=== PATIENT | male | born 1990 | race Caucasian/White ===

== ENCOUNTER 2019-02-16 00:38 | Emergency (ER) | payer OTHER ==
--- NOTE | 2019-02-16 02:35 | ED Physician Documentation ---
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 He did get some heat under his necklace that is around his neck as well. He has had 7 previous shocks in his line of work and states this is a minor shock with 115 V and he feels well at this time. Review of Systems Constitutional: denies: Fever Eyes: denies: Decreased vision, Photophobia Ears: denies: Ear pain Nose: denies: Congestion Throat: denies: Sore throat Cardiac: denies: Chest pain / pressure Respiratory: denies: Cough GI: denies: Vomiting PD PAST MEDICAL HISTORY - Past Medical History Past Medical History: No - Past Surgical History Past Surgical History: No - Present Medications Home Medications: Ambulatory Orders Medication Instructions Recorded Confirmed No Known Home Medications 02/16/19 02/16/19 - Allergies Allergies/Adverse Reactions: Allergies Allergy/AdvReac Type Severity Reaction Status Date / Time No Known Drug Allergies Allergy Verified 02/16/19 00:48 - Social History Does the pt smoke?: Yes Smoking Status: Current every day smoker Does the pt drink ETOH?: Yes Does the pt have substance abuse?: No - Immunizations Immunizations are current?: Yes PD ED PE NORMAL - Vitals Vital signs reviewed: Yes (hypertensive ) - General General: Alert and oriented X 3, No acute distress, Well developed/nourished - HEENT HEENT: Atraumatic, PERRL, EOMI - Neck Neck: Supple, no meningeal sign - Cardiac Cardiac: RRR, No murmur - Respiratory Respiratory: No respiratory distress, Clear bilaterally - Back Back: No CVA TTP, No spinal TTP - Derm Derm: Normal color, Warm and dry, No rash - Extremities Extremities: No deformity, No edema - Neuro Neuro: Alert and oriented X 3, executive chairman of the board 2-12 intact, No motor deficit, No sensory deficit, Normal speech Eye Opening: Spontaneous Motor: Obeys Commands Verbal: Oriented GCS Score: 15 - Psych Psych: Normal mood, Normal affect Results - Vitals Vitals: Vital Signs - 24 hr 02/16/19 02/16/19 02/16/19 00:43 00:54 02:41 Temperature 36.7 C 36.6 C Heart Rate 93 88 90 Respiratory 20 16 Rate Blood Pressure 179/84 H 144/62 H O2 Saturation 98 99 Oxygen O2 Source Room air - EKG (time done) 0040 Rate: Rate (enter#) (90) Rhythm: NSR Ischemia: Normal ST segments Compare to prior EKG: Old EKG unavailable Computer interpretation: Agree with computer PD MEDICAL DECISION MAKING - ED course Complexity details: reviewed results, re-evaluated patient, considered d ifferential, d/w patient ED course: 28-year-old male with an electrical injury from 115 V current appears uninjured. He has had injuries numerous times he feels safe to go home. He is monitored in the emergency department for over 1 hour without ectopy. Departure - Departure Disposition: 01 Home, Self Care Clinical Impression: Electrical shock of hand Qualifiers: Encounter type: initial encounter Qualified Code(s): T75.4XXA - Electrocution, initial encounter Condition: Stable Health Concerns: Electrical shock Plan of Treatment: avoid bare loaded wires Care Goals: never get shocked again Assessment: electrical shock Instructions: ED Burn Electrical Follow-Up: JAYCOB HOLMAN III, MD [Primary Care Provider] - Discharge Date/Time: 02/16/19 02:42
[2019-02-16 02:42] VITALS: BP 144/62
== END 2019-02-16 02:42 | disposition home or self-care (01) ==
LOC: ED 00:38
DX: T75.4XXA Electrocution, initial encounter (principal); F17.200 Nicotine dependence, unspecified, uncomplicated
CPT/HCPCS: 93005; 99282; 99283

== ENCOUNTER 2020-01-26 20:49 | Emergency (ER) | payer OTHER ==
--- NOTE | 2020-01-26 21:22 | ED Physician Documentation ---
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 He denies any alcohol use for the last 30 days he denies any recent travel outside the country he denies any headache, neck pain, sore throat, rash or any syncopal episodes.) Review of Systems Constitutional: reports: Fever, Chills, Myalgias Eyes: reports: Reviewed and negative Ears: reports: Reviewed and negative Nose: reports: Reviewed and negative Throat: reports: Reviewed and negative Cardiac: reports: Reviewed and negative Respiratory: reports: Reviewed and negative GI: reports: Nausea : reports: Reviewed and negative Skin: reports: Reviewed and negative Musculoskeletal: reports: Reviewed and negative Neurologic: reports: Reviewed and negative Psychiatric: reports: Reviewed and negative Endocrine: reports: Reviewed and negative Immunocompromised: reports: Reviewed and negative PD PAST MEDICAL HISTORY - Past Medical History Cardiovascular: None Respiratory: None Neuro: None Endocrine/Autoimmune: None GI: Pancreatitis : None HEENT: None Psych: None Musculoskeletal: None Derm: None - Past Surgical History Past Surgical History: No - Present Medications Home Medications: Ambulatory Orders Medication Instructions Recorded Confirmed No Known Home Medications 02/16/19 01/26/20 - Allergies Allergies/Adverse Reactions: Allergies Allergy/AdvReac Type Severity Reaction Status Date / Time No Known Drug Allergies Allergy Verified 01/26/20 20:54 - Social History Does the pt smoke?: Yes Smoking Status: Current every day smoker Does the pt drink ETOH?: Yes Does the pt have substance abuse?: No - Immunizations Immunizations are current?: Yes PD ED PE NORMAL - Vitals Vital signs reviewed: Yes - General General: Alert and oriented X 3, No acute distress, Well developed/nourished - HEENT HEENT: PERRL, Moist mucous membranes - Neck Neck: Supple, no meningeal sign, No adenopathy, Thyroid normal - Cardiac Cardiac: RRR, No murmur, Strong equal pulses - Respiratory Respiratory: No respiratory distress, Clear bilaterally - Abdomen Abdomen: Normal bowel sounds, Soft, Non tender, Non distended, No organomegaly, Other (No midline abdominal pulsatile mass there is mild tenderness in the epigastric region but no peritoneal signs) - Back Back: No CVA TTP, No spinal TTP - Derm Derm: Normal color, Warm and dry, No rash - Extremities Extremities: No deformity, No tenderness to palpate, Normal ROM s pain, No edema, No calf tenderness / cord - Neuro Neuro: Alert and oriented X 3, trip follower 2-12 intact, No motor deficit, No sensory deficit, Normal speech - Psych Psych: Normal mood, Normal affect Results - Vitals Vitals: Vital Signs - 24 hr 01/26/20 01/26/20 01/27/20 20:51 22:51 00:12 Temperature 37.7 C H Heart Rate 122 H 91 82 Respiratory 18 16 16 Rate Blood Pressure 150/87 H 153/88 H 155/79 H O2 Saturation 98 97 98 Oxygen O2 Source Room air - Labs Labs: Laboratory Tests 01/26/20 01/26/20 01/26/20 21:50 21:50 21:50 WBC 3.1 L RBC 5.02 Hgb 14.5 Hct 43.1 MCV 85.9 MCH 28.9 MCHC 33.6 RDW 12.3 Plt Count 150 MPV 12.3 H Neut # (Auto) 1.7 Lymph # (Auto) 0.9 L [place] # (Auto) 0.4 Eos # (Auto) 0.0 Baso # (Auto) 0.1 Absolute Nucleated RBC 0.00 Nucleated RBC % 0.0 PT 13.1 H INR 1.2 APTT 30.8 Sodium 133 L Potassium 3.9 Chloride 100 L Carbon Dioxide 25 Anion Gap 8.0 BUN 15 Creatinine 1.1 Estimated GFR (MDRD) 80 L Glucose 113 H Calcium 8.6 Total Bilirubin AST ALT Alkaline Phosphatase Total Creatine Kinase 70 Total Protein Albumin Globulin Albumin/Globulin Ratio Lipase Urine Color Urine Clarity Urine pH Ur Specific [place] Urine Protein Urine Glucose (UA) Urine Ketones Urine Occult Blood Urine Nitrite Urine Bilirubin Urine Urobilinogen Ur Leukocyte Esterase Ur Microscopic Review Urine Culture Comments Urine Opiates Screen Ur Oxycodone Screen Urine Methadone Screen Ur Propoxyphene Screen Ur Barbiturates Screen Ur Tricyclics Screen Ur Phencyclidine Scrn Ur Amphetamine Screen U Methamphetamines Scrn U Benzodiazepines Scrn Urine Cocaine Screen U Cannabinoids Screen Ethyl Alcohol < 5.0 Influenza A (Rapid) Influenza B (Rapid) 01/26/20 01/26/20 01/26/20 21:50 23:30 23:45 WBC RBC Hgb Hct MCV MCH MCHC RDW Plt Count MPV Neut # (Auto) Lymph # (Auto) [place] # (Auto) Eos # (Auto) Baso # (Auto) Absolute Nucleated RBC Nucleated RBC % PT INR APTT Sodium 133 L Potassium 4.2 Chloride 103 Carbon Dioxide 23 Anion Gap 7.0 BUN 15 Creatinine 1.1 Estimated GFR (MDRD) 80 L Glucose 108 H Calcium 8.3 L Total Bilirubin 1.7 H AST 66 H ALT 92 H Alkaline Phosphatase 62 Total Creatine Kinase Total Protein 7.2 Albumin 3.9 Globulin 3.3 Albumin/Globulin Ratio 1.2 Lipase 135 H Urine Color DARK YELLOW Urine Clarity CLEAR Urine pH 7.5 Ur Specific [place] 1.020 Urine Protein TRACE Urine Glucose (UA) NEGATIVE Urine Ketones TRACE Urine Occult Blood NEGATIVE Urine Nitrite NEGATIVE Urine Bilirubin NEGATIVE Urine Urobilinogen 1 (NORMAL) Ur Leukocyte Esterase NEGATIVE Ur Microscopic Review NOT INDICATED Urine Culture Comments NOT INDICATED Urine Opiates Screen NEGATIVE Ur Oxycodone Screen NEGATIVE Urine Methadone Screen NEGATIVE Ur Propoxyphene Screen NEGATIVE Ur Barbiturates Screen NEGATIVE Ur Tricyclics Screen NEGATIVE Ur Phencyclidine Scrn NEGATIVE Ur Amphetamine Screen NEGATIVE U Methamphetamines Scrn NEGATIVE U Benzodiazepines Scrn NEGATIVE Urine Cocaine Screen NEGATIVE U Cannabinoids Screen NEGATIVE Ethyl Alcohol Influenza A (Rapid) Negative Influenza B (Rapid) Negative PD MEDICAL DECISION MAKING - ED course Complexity details: reviewed results, re-evaluated patient, considered differential (Patient reports subjective fevers and chills for the last 6 days COVID-19 test sent. He is well-appearing on exam his lipase is mildly elevated patient is responded well to fluids as tolerated p.o. challenge he has appropriate follow-up today with medical at [facility] would [place] d/w patient Departure - Departure Disposition: 01 Home, Self Care Clinical Impression: Pancreatitis Qualifiers: Chronicity: acute Pancreatitis type: unspecified pancreatitis type Acute pancreatitis complication: unspecified Qualified Code(s): K85.90 - Acute pancreatitis without necrosis or infection, unspecified Condition: Stable Instructions: ED Pancreatitis Follow-Up: your, doctor [Other] - 01/27/20 Comments: Call medical at [email or web address] would be [place] this morning to schedule follow-up with treatment. Take 800 mg of ibuprofen as needed for pain or fever. Hydrate well.
[2020-01-26] MEDS ORDERED: SODIUM CHLORIDE 0.9% 1,000 ML IV STA (21:43)
[2020-01-26] MEDS ORDERED: IBUPROFEN 800 MG TABLET PO STA (21:43)
[2020-01-26 22:04] LABS: BASOPHILS # (AUTO) 0.1 10^3/uL (0.0-0.1); BASOPHILS % (AUTO) 1.6 %; EOSINOPHILS % (AUTO) 0.3 %; HGB - HEMOGLOBIN 14.5 g/dL (14.0-18.0); LYMPHOCYTES # (AUTO) 0.9 10^3/uL (1.5-3.5); LYMPHOCYTES % (AUTO) 30.2 %; MEAN CORPUSCULAR HEMOGLOBIN 28.9 pg (27.0-31.0); MEAN CORPUSCULAR HGB CONC 33.6 g/dL (32.0-36.0); MEAN CORPUSCULAR VOLUME 85.9 fL (80.0-94.0); MEAN PLATELET VOLUME 12.3 fL (7.4-11.4); MONOCYTES # (AUTO) 0.4 10^3/uL (0.0-1.0); MONOCYTES % (AUTO) 12.8 %; NEUTROPHILS # (AUTO) 1.7 10^3/uL (1.5-6.6); NEUTROPHILS % (AUTO) 54.1 %; PLT - PLATELET COUNT 150 10^3/uL (130-450); RED BLOOD COUNT 5.02 10^6/uL (4.70-6.10); RED CELL DISTRIBUTION WIDTH 12.3 % (12.0-15.0); WHITE BLOOD COUNT 3.1 x10^3/uL (4.8-10.8)
[2020-01-26 22:09] LABS: INR 1.2 (0.8-1.2); PT - PROTHROMBIN TIME 13.1 secs (9.9-12.6)
[2020-01-26 22:16] LABS: BUN - BLOOD UREA NITROGEN 15 mg/dL (6-20); CALCIUM 8.6 mg/dL (8.5-10.3); CARBON DIOXIDE - CO2 25 mmol/L (21-32); CHLORIDE 100 mmol/L (101-111); CK- CREATINE KINASE 70 IU/L (22-269); CREATININE 1.1 mg/dL (0.6-1.2); GLUCOSE 113 mg/dL (70-100); PARTIAL THROMBOPLASTIN TIME 30.8 secs (24.9-33.3); SODIUM 133 mmol/L (135-145)
[2020-01-26 23:47] LABS: ALBUMIN 3.9 g/dL (3.2-5.5); ALBUMIN/GLOBULIN RATIO 1.2 (1.0-2.2); BILIRUBIN,TOTAL 1.7 mg/dL (0.2-1.0); CALCIUM 8.3 mg/dL (8.5-10.3); CREATININE 1.1 mg/dL (0.6-1.2); TOTAL PROTEIN 7.2 g/dL (6.7-8.2)
[2020-01-26 23:51] LABS: MUDS CUTOFF CONCENTRATIONS CUTOFF CONC BELOW:
[2020-01-26 23:54] LABS: GLUCOSE, URINE (UA) NEGATIVE (NEGATIVE); KETONES,URINE (UA) TRACE mg/dL (NEGATIVE); LEUKOCYTE ESTERASE, URINE NEGATIVE (NEGATIVE); NITRITE,URINE NEGATIVE (NEGATIVE); OCCULT BLOOD,URINE NEGATIVE (NEGATIVE); PH,URINE 7.5 PH (5.0-7.5); PROTEIN,URINE TRACE mg/dL (NEGATIVE); UROBILINOGEN,URINE 1 (NORMAL) E.U./dL (NORMAL)
[2020-01-26 23:59] LABS: BILIRUBIN,URINE NEGATIVE (NEGATIVE); CLARITY,URINE CLEAR (CLEAR); ICTOTEST,URINE NEGATIVE
[2020-01-27 00:05] LABS: AMPHETAMINE SCREEN,URINE NEGATIVE (NEGATIVE); BENZODIAZEPINES SCREEN, URINE NEGATIVE (NEGATIVE); COCAINE SCREEN URINE NEGATIVE (NEGATIVE); METHADONE SCREEN, URINE NEGATIVE (NEGATIVE); METHAMPHETAMINES SCREEN, URINE NEGATIVE (NEGATIVE); OPIATE SCREEN, URINE NEGATIVE (NEGATIVE); OXYCODONE SCREEN, URINE NEGATIVE (NEGATIVE); PROPOXYPHENE SCREEN, URINE NEGATIVE (NEGATIVE); TRICYCLIC ANTIDEPRESSANT,URINE NEGATIVE (NEGATIVE)
[2020-01-27 00:36] VITALS: BP 133/93
== END 2020-01-27 00:37 | disposition home or self-care (01) ==
LOC: ED 20:49
DX: K85.90 Acute pancreatitis without necrosis or infection, unspecified (principal); M79.10 Myalgia, unspecified site; R50.9 Fever, unspecified; Z20.828 Contact with and (suspected) exposure to other viral communicable diseases; F17.200 Nicotine dependence, unspecified, uncomplicated
CPT/HCPCS: 36415; 80048; 80053; 80320; 81003; 81599; 82550; 83690; 85025; 85610; 85730; 87275; 87276; 96360; 96361; 99283; A9270; 80306; 81001; 87086

== ENCOUNTER 2021-02-27 15:12 | Emergency (ER) | payer OTHER ==
[2021-02-27 15:26] VITALS: BP 137/80
--- NOTE | 2021-02-27 15:33 | ED Physician Documentation ---
PD HPI BACK PAIN - Stated complaint Stated Complaint: BACK PX - Chief complaint Chief Complaint: Back Pain - History obtained from History obtained from: Patient - History of Present Illness Timing - onset: Today Timing - duration: Hours (an hour or so) Timing - details: Abrupt onset (he has had ongoing back pain since injury 1 1/2 years ago, but it is usually mild. Has had flares at times. Today, was lifting a toolbox and felt onset of spasm and pain right low back, similar to prior episodes.) Location: Lower, Right Quality: Pain, Spasm Associated symptoms: No: Weakness, Numbness Improves with: No: Rest, Meds (tried ibuprofen) Worsened by: Movement Contributing factors: Lifting, Twisting Similar symptoms before: Diagnosis (back strain/muscles) Review of Systems Constitutional: denies: Fever, Chills : denies: Dysuria, Hematuria Skin: denies: Rash, Lesions Neurologic: denies: Focal weakness, Numbness PD PAST MEDICAL HISTORY - Past Medical History Cardiovascular: None Respiratory: None Neuro: None Endocrine/Autoimmune: None GI: Pancreatitis : None HEENT: None Psych: None Musculoskeletal: None Derm: None - Past Surgical History Past Surgical History: No - Present Medications Home Medications: Ambulatory Orders Medication Instructions Recorded Confirmed Cyclobenzaprine [Flexeril] 10 mg PO TID PRN #20 tablet 02/27/21 HYDROcod/ACETAM 5/325 [[place] 5/325] 1 ea PO Q6H PRN #18 tablet 02/27/21 Ibuprofen [Motrin] 600 mg PO TID PRN #25 tab 02/27/21 - Allergies Allergies/Adverse Reactions: Allergies Allergy/AdvReac Type Severity Reaction Status Date / Time No Known Drug Allergies Allergy Verified 02/27/21 15:26 - Social History Does the pt smoke?: Yes Smoking Status: Current every day smoker Does the pt drink ETOH?: Yes Does the pt have substance abuse?: No - Immunizations Immunizations are current?: Yes PD ED PE NORMAL - Vitals Vital signs reviewed: Yes - General General: Alert and oriented X 3, Well developed/nourished, Other (guarded ROM and appears in marked pain from low back. He did drive himself here and will be driving home. ) - Abdomen Abdomen: Soft, Non tender - Back Back: No CVA TTP, No spinal TTP (right paralumbar muscle with focal spasm and tender but also vertical tenderness of muscle. No midline tenderness to palp nor percussion. ) - Derm Derm: Normal color, Warm and dry, No rash - Neuro Neuro: Alert and oriented X 3, No motor deficit, No sensory deficit Results - Vitals Vitals: Vital Signs - 24 hr 02/27/21 15:22 Temperature 36.4 C L Heart Rate 94 Respiratory 16 Rate Blood Pressure 137/80 H O2 Saturation 99 Oxygen O2 Source Room air Procedures - General procedure General procedure: Trigger point injection at point of most spasm with Kenalog and Lidocaine. SOme improvement with that and IM Toradol/ PO TYlenol here. He is feeling able to drive home safely with his back stiff. PD MEDICAL DECISION MAKING - ED course Complexity details: considered differential, d/w patient Departure - Departure Disposition: Home, Self Care Clinical Impression: Acute lumbar myofascial strain Qualifiers: Encounter type: initial encounter Qualified Code(s): S39.012A - Strain of muscle, fascia and tendon of lower back, initial encounter Condition: Stable Record reviewed to determine appropriate education?: Yes Instructions: ED Sprain Strain Lumbar Follow-Up: [facility] [Provider Group] Prescriptions: Cyclobenzaprine [Flexeril] 10 mg PO TID PRN #20 tablet PRN Reason: Spasms Ibuprofen [Motrin] 600 mg PO TID PRN #25 tab PRN Reason: Pain HYDROcod/ACETAM 5/325 [[place] 5/325] 1 ea PO Q6H PRN #18 tablet PRN Reason: Pain Comments: Heat and stretching for the low back to help reduce spasming. Use ibuprofen 3 times a day with food. Also Flexeril muscle relaxant for stiffness and spasms. Add Tylenol or hydrocodone as needed for pain every 4-6 hours. Off work today and tomorrow. No lifting repetitive bending or twisting for the next couple of days. Progress activity as able after that. follow-up with your primary care if not improved well over the next few days. Forms: Activity restrictions Discharge Date/Time: 02/27/21 16:55
[2021-02-27] MEDS ORDERED: ACETAMINOPHEN 325 MG TABLET PO STA (16:05)
[2021-02-27] MEDS ORDERED: TRIAMCINOLONE 40 MG/ML VIAL IM STA (16:05)
[2021-02-27] MEDS ORDERED: KETOROLAC 15 MG/ML VIAL IM STA (16:05)
[2021-02-27] MEDS ORDERED: methocarbamoL 500 MG TABLET PO STA (16:05)
== END 2021-02-27 16:55 | disposition home or self-care (01) ==
LOC: ED 15:12
DX: F17.200 Nicotine dependence, unspecified, uncomplicated (principal); S39.012A Strain of muscle, fascia and tendon of lower back, initial encounter; X50.9XXA Other and unspecified overexertion or strenuous movements or postures, initial encounter; Y93.89 Activity, other specified
CPT/HCPCS: 20552; 96372; 99283; 99284; A9270